=== PATIENT | male | born 1985 | race Caucasian/White ===

== ENCOUNTER 2021-09-19 07:14 | Emergency (ER) | payer BC, SELFPAY ==
--- NOTE | 2021-09-19 07:15 | PC.NURSE ---
JENNIFER Pérez at BS
[2021-09-19 07:22] VITALS: BP 136/98; PULSE 80; RESP 17; TEMP 36.6; O2SAT 100; BMI 25.0
[2021-09-19 07:49] LABS: Basophils # 0.1 K/mm3 (0-0.2); Basophils % 0.6 % (0.1-2.0); Eosinophils # 0.1 K/mm3 (0.0-0.4); Eosinophils % 0.8 % (0.1-12.0); Hematocrit 48.7 % (42.0-52.0); Lymphocytes # 1.3 K/mm3 (0.7-4.5); Lymphocytes % 13.7 % (10-50); Mean Corpuscular HGB Conc 34.8 g/dL (31.8-35.4); Mean Corpuscular Hemoglobin 31.7 pg (27.0-31.2); Mean Platelet Volume 8.2 fl (7.4-10.4); Monocytes # 0.6 K/mm3 (0.1-1.0); Monocytes % 6.1 % (1.7-9.3); Neutrophils # 7.4 K/mm3 (1.8-7.8); Neutrophils % 78.9 % (37.0-80.0); Platelet Count 227 K/mm3 (142-424); Red Blood Count 5.35 M/mm3 (4.60-6.20); Red Cell Distribution Width 13.5 % (11.5-17.5); White Blood Count 9.4 K/mm3 (4.8-10.8)
[2021-09-19 08:01] LABS: Adenovirus F 40/41, stool Not Detected (NotDetected); Astrovirus Not Detected (NotDetected); Campylobacter Not Detected (NotDetected); Clostridium Difficile A/B, PCR Not Detected (NotDetected); Cryptosporidium Not Detected (NotDetected); Cyclospora Cayetanesis Not Detected (NotDetected); Entamoeba histolytica Not Detected (NotDetected); Enteroaggregative E coli Not Detected (NotDetected); Enteropathogenic E coli Not Detected (NotDetected); Enterotoxigenic E coli Not Detected (NotDetected); Giardia lamblia Not Detected (NotDetected); Microscopic, Urine URINE MICROSCOPIC (MICROSCOPIC); Norovirus Not Detected (NotDetected); Plesimonas Shigalloides, PCR Not Detected (NotDetected); Rotavirus A Not Detected (NotDetected); Salmonella, PCR Not Detected (NotDetected); Shiga-like toxin E coli Not Detected (NotDetected); Shigella Enterovasive E coli Not Detected (NotDetected); Vibrio Cholerae Not Detected (NotDetected); Vibrio, PCR Not Detected (NotDetected); Yersinia Entercolitica, PCR Not Detected (NotDetected)
[2021-09-19 08:02] LABS: Appearance,Urine CLEAR (Clear); Bilirubin,Urine Negative (Negative); Blood, Urine Negative (Negative); Color,Urine YELLOW (Yellow); Glucose,Urine (UA) Negative (Negative); Ketones,Urine TRACE (Negative); Leukocyte Esterase,Urine Negative (Negative); Nitrate,Urine Negative (Negative); PH,Urine 6.5 (5.0-8.5); Protein,Urine Negative (Negative); Specific Gravity, Urine 1.015 (1.005-1.030); Urobilinogen,Urine 0.2 EU/dl (0.2)
[2021-09-19 08:19] LABS: Bacteria,Urine 3+ /lpf; Mucus,Urine 3+ /lpf; Squamous Epithelial Cell,Urine Occasional #/hpf (0-5); WBC,Urine Occasional #/hpf (0-3)
[2021-09-19 08:23] LABS: Alanine Aminotransferase 48 U/L (12-78); Albumin Level 4.9 g/dl (3.5-5.0); Albumin/Globulin Ratio 1.5 (1.1-1.8); Alkaline Phosphatase 125 U/L (38-126); Anion Gap 15.6 mEq/L (5-15); Aspartate Amino Transferase 42 U/L (17-59); Bilirubin,Total 0.6 mg/dl (0.2-1.3); Blood Urea Nitrogen 9 mg/dl (9-20); Calcium 9.8 mg/dl (8.4-10.2); Carbon Dioxide 25 mmol/L (22.0-30.0); Chloride 102 mmol/L (98-107); Creatinine Clearance Estimated 135 mL/min (50-200); Estimated Glomerular Filt Rate 95 ml/min (>60); GFR (African American) 116 ML/MIN (>60); Globulin 3.3 g/dL (1.3-3.2); Glucose 126 mg/dl (74-100); Lipase 54 U/L (23-300); Potassium 3.6 mmoL/L (3.5-5.1); Sodium 139 mmol/L (136-145); Total Protein,Serum 8.2 g/dl (6.3-8.2)
--- NOTE | 2021-09-19 08:58 | HMH.EDNVD ---
ED Disposition Clinical Impression: Gastroenteritis Disposition: Home, Self-Care Condition on Discharge: Good Instructions: Viral Gastroenteritis Additional Instructions: These follow-up with your primary care physician in 2 to 3 days for further management. Please take Zofran as prescribed for nausea and vomiting. Please also utilize Tylenol and ibuprofen as needed. Please return for any concerning symptoms such as inability to eat and drink, symptoms that do not improve, bloody stools, worsening abdominal pain or any other concerns. Make sure you are staying hydrated and drink plenty of water. Prescriptions: Ondansetron [Zofran 4mg ODT] 4 mg PO TIDP PRN #30 tab PRN Reason: Nausea Transmission Status: Received by [id number] Referrals: Lily Arias APRN [Primary Care Provider] - - Critical Care Critical Care Time: No Attestation: On 09/19/21, the high probability of a clinically significant, sudden or life threatening deterioration of the following system(s) required my full and direct attention, intervention and personal management. The time I documented below is in addition to time spent performing reported procedures but includes the following listed in this critical care notation. Medical Decision Making - Medical Records Medical records reviewed: Yes: I reviewed the patient's medical records. - Richard Inquiry Pt receiving controlled substance: No Vital Signs: 09/19/21 07:22 09/19/21 09:12 Temperature 97.9 F 97.9 F Temperature Source Oral Pulse Rate 73 Pulse Rate [Left Radial] 80 Respiratory Rate 17 16 Blood Pressure 125/79 Blood Pressure [Right Arm] 136/98 H Blood Pressure Mean [Right Arm] 110 02 Sat by Pulse Oximetry 100 Oxygen Delivery Method Room Air - Lab Data Lab results reviewed: Yes: I reviewed the patient's lab results. Lab Results 09/19/21 07:37: WBC 9.4, RBC 5.35, Hgb 17.0, Hct 48.7, MCV 91.0, MCH 31.7 H, MCHC 34.8, RDW 13.5, Plt Count 227, MPV 8.2, Neut % (Auto) 78.9, Lymph % (Auto) 13.7, [place] % (Auto) 6.1, Eos % (Auto) 0.8, Baso % (Auto) 0.6, Neut # (Auto) 7.4, Lymph # (Auto) 1.3, [place] # (Auto) 0.6, Eos # (Auto) 0.1, Baso # (Auto) 0.1 09/19/21 07:37: Sodium 139, Potassium 3.6, Chloride 102, Carbon Dioxide 25, Anion Gap 15.6 H, BUN 9, Creatinine 0.90, Estimated Creat Clear 135, Estimated GFR 95, Est GFR ( Amer) 116, Glucose 126 H, Calcium 9.8, Total Bilirubin 0.6, AST 42, ALT 48, Alkaline Phosphatase 125, Total Protein 8.2, Albumin 4.9, Globulin 3.3 H, Albumin/Globulin Ratio 1.5 09/19/21 07:37: Lipase 54 09/19/21 07:58: Urine Color Yellow, Urine Appearance Clear, Urine pH 6.5, Ur Specific [place] 1.015, Urine Protein Negative, Urine Glucose (UA) Negative, Urine Ketones Trace, Urine Blood Negative, Urine Nitrate Negative, Urine Bilirubin Negative, Urine Urobilinogen 0.2, Ur Leukocyte Esterase Negative, Urine RBC None, Urine WBC Occasional, Ur Squamous Epith Cells Occasional, Urine Bacteria 3+, Urine Mucus 3+ Result diagrams: 09/19/21 07:37 09/19/21 07:37 Orders (Tests/Meds): ED MEDICATIONS Discontinued Medications Generic Name Dose Route Start Last Admin Trade Name Yohannes PRN Reason Stop Dose Admin Acetaminophen 1,000 mg 09/19/21 08:13 09/19/21 08:24 Acetaminophen 500mg Tab PO 09/19/21 08:14 1,000 mg ONCE ONE Administration Sodium Chloride 1,000 mls @ 999 mls/hr 09/19/21 07:30 09/19/21 07:37 Sod Chlor 0.9% 1000ml Bag IV 09/19/21 08:30 999 mls/hr .Q1H1M PRITI Administration Ibuprofen 600 mg 09/19/21 08:13 09/19/21 08:24 Ibuprofen 600 Mg Tablet PO 09/19/21 08:14 600 mg ONCE ONE Administration Ondansetron HCl 4 mg 09/19/21 07:26 09/19/21 07:36 Ondansetron 4mg/2ml Vial IV 09/19/21 07:27 4 mg ONCE ONE Administration Sodium Chloride 10 ml 09/19/21 07:26 Sodium Chloride 0.9% 10ml Flush Syringe IV 10/19/21 07:25 NEEDED PRN Maintain IV Site ORDERS Category Date Time Status Suyapa
[2021-09-19 09:12] VITALS: BP 125/79; PULSE 73; RESP 16; TEMP 36.6; O2SAT 100
[2021-09-19 15:10] LABS: Sapovirus Detected (NotDetected)
== END 2021-09-19 09:12 | disposition home or self-care (01) ==
PROVIDERS: Emergency Medicine; Emergency Provider Student in an Organized Health Care Education/Training Program; PCP Nurse Practitioner Family
DX: K52.9 Noninfective gastroenteritis and colitis, unspecified (principal)
CPT/HCPCS: 80053; 81001; 83690; 85025; 87086; 87506; 96360; 96375; 99284; J2405

== ENCOUNTER → 2022-04-04 12:47 | Outpatient (CLI) | payer BC, SELFPAY ==
[2022-04-04 13:42] LABS: Basophils % 0.6 % (0.1-2.0); Eosinophils # 0.1 K/mm3 (0.0-0.4); Eosinophils % 0.8 % (0.1-12.0); Hematocrit 45.9 % (42.0-52.0); Hemoglobin 15.3 g/dL (14.1-18.0); Lymphocytes # 1.5 K/mm3 (0.7-4.5); Lymphocytes % 20.6 % (10-50); Mean Corpuscular HGB Conc 33.3 g/dL (31.8-35.4); Mean Corpuscular Hemoglobin 30.7 pg (27.0-31.2); Mean Platelet Volume 7.9 fl (7.4-10.4); Monocytes # 0.4 K/mm3 (0.1-1.0); Neutrophils # 5.4 K/mm3 (1.8-7.8); Neutrophils % 72.9 % (37.0-80.0); Platelet Count 260 K/mm3 (142-424); Red Blood Count 4.99 M/mm3 (4.60-6.20); Red Cell Distribution Width 13.1 % (11.5-17.5); White Blood Count 7.4 K/mm3 (4.8-10.8)
[2022-04-04 14:15] LABS: Alanine Aminotransferase 29 U/L (12-78); Albumin Level 5.1 g/dl (3.5-5.0); Albumin/Globulin Ratio 1.6 (1.1-1.8); Alkaline Phosphatase 137 U/L (38-126); Amylase 70 U/L (30-110); Anion Gap 16.5 mEq/L (5-15); Aspartate Amino Transferase 29 U/L (17-59); Bilirubin,Total 0.5 mg/dl (0.2-1.3); Blood Urea Nitrogen 9 mg/dl (9-20); Calcium 10.5 mg/dl (8.4-10.2); Carbon Dioxide 24 mmol/L (22.0-30.0); Chloride 104 mmol/L (98-107); Estimated Glomerular Filt Rate 85 ml/min (>60); GFR (African American) 102 ML/MIN (>60); Globulin 3.1 g/dL (1.3-3.2); Glucose 99 mg/dl (74-100); Lipase 69 U/L (23-300); Potassium 4.5 mmoL/L (3.5-5.1); Sodium 140 mmol/L (136-145); Total Protein,Serum 8.2 g/dl (6.3-8.2)
[2022-04-05 18:04] LABS: H. pylori Breath Test Negative (Negative)
== END ==
PROVIDERS: PCP Nurse Practitioner Family; Visit Provider Nurse Practitioner Family
DX: R10.9 Unspecified abdominal pain (principal); R10.13 Epigastric pain
CPT/HCPCS: 36415; 80053; 82150; 83013; 83690; 85025

== ENCOUNTER 2023-07-28 17:29 | Outpatient (CLI) | payer BC, SELFPAY ==
[2023-07-28 16:46] LABS: Basophils % 0.5 % (0.1-2.0); Eosinophils # 0.1 K/mm3 (0.0-0.4); Eosinophils % 1.1 % (0.1-12.0); Hematocrit 46.8 % (42.0-52.0); Hemoglobin 15.6 g/dL (14.1-18.0); Mean Corpuscular HGB Conc 33.4 g/dL (31.8-35.4); Mean Corpuscular Hemoglobin 31.1 pg (27.0-31.2); Mean Corpuscular Volume 93.4 fl (80-94); Mean Platelet Volume 8.2 fl (7.4-10.4); Monocytes # 0.5 K/mm3 (0.1-1.0); Monocytes % 5.6 % (1.7-9.3); Neutrophils # 5.5 K/mm3 (1.8-7.8); Neutrophils % 67.8 % (37.0-80.0); Platelet Count 222 K/mm3 (142-424); Red Blood Count 5.01 M/mm3 (4.60-6.20); Red Cell Distribution Width 13.4 % (11.5-17.5); White Blood Count 8.1 K/mm3 (4.8-10.8)
[2023-07-28 17:08] LABS: Alanine Aminotransferase 45 U/L (12-78); Albumin/Globulin Ratio 1.8 (1.1-1.8); Alkaline Phosphatase 80 U/L (38-126); Anion Gap 12.3 mEq/L (5-15); Aspartate Amino Transferase 35 U/L (17-59); Bilirubin,Total 0.5 mg/dl (0.2-1.3); Blood Urea Nitrogen 11 mg/dl (9-20); Calcium 10.1 mg/dl (8.4-10.2); Carbon Dioxide 29 mmol/L (22.0-30.0); Chloride 105 mmol/L (98-107); Chol/HDL Ratio 4.9 (1-3.5); Cholesterol 248 mg/dl (140-200); Estimated Glomerular Filt Rate 95 ml/min (>60); GFR (African American) 115 ML/MIN (>60); Globulin 2.8 g/dL (1.3-3.2); Glucose 97 mg/dl (74-100); HDL Cholesterol 51 mg/dl (40-60); Potassium 4.3 mmoL/L (3.5-5.1); Sodium 142 mmol/L (136-145); Total Protein,Serum 7.8 g/dl (6.3-8.2); Triglycerides 295 mg/dl (30-150); VLDL Cholesterol 59 mg/dL (0-40)
[2023-07-28 17:19] LABS: Direct LDL Cholesterol 138.57 mg/dL (100-129)
[2023-07-28 17:23] LABS: T4 (Thyroxine) 7.3 ug/dl (5.53-11.0)
[2023-07-28 17:24] LABS: 25-OH Vitamin D, Total 33.3 ng/mL (30-100)
[2023-07-28 17:37] LABS: Thyroid Stimulating Hormone 1.05 uIU/mL (0.465-4.68)
[2023-07-28 17:56] LABS: Vitamin B12 632 pg/mL (239-931)
[2023-07-29 08:58] LABS: Triiodothyronine (T3) Free 2.7 pg/mL (2.0-4.4)
[2023-08-03 12:56] LABS: Magnesium,RBC 5.1 mg/dL (3.7-7.0)
[2023-08-05 08:26] LABS: Antinuclear Antibodies (ANA) Negative
== END 2023-07-28 23:59 ==
LOC: LAB.DROPOF 17:29
PROVIDERS: PCP Nurse Practitioner Family; Visit Provider Nurse Practitioner Family
DX: R42 Dizziness and giddiness (principal); E01.0 Iodine-deficiency related diffuse (endemic) goiter; Z13.220 Encounter for screening for lipoid disorders; E78.1 Pure hyperglyceridemia
CPT/HCPCS: 80053; 80061; 82306; 82607; 82728; 83735; 84436; 84443; 84481; 85025; 86038; 86225; 86235

== ENCOUNTER 2023-07-31 13:46 | Outpatient (CLI) | payer BC, SELFPAY ==
--- NOTE | 2023-07-31 13:46 | US_ITS ---
FINAL REPORT TECHNIQUE: Real-time grayscale and color ultrasound of the thyroid was performed. CLINICAL HISTORY: thyromegaly COMPARISON: None FINDINGS: The thyroid gland measures 3.5 x 1.5 x 1.5 cm on the right and 4.0 x 1.6 x 1.2 cm on the left. The isthmus measures 0.2 cm. The parenchyma is unremarkable . Nodules: There are no suspicious nodules or masses. IMPRESSION: Unremarkable thyroid ultrasound. Reviewed, Interpreted and Dictated by William Cope III, MD Transcribed by Jennifer Ramos Authenticated and [facility]
== END 2023-07-31 23:59 ==
LOC: RAD 13:46
PROVIDERS: PCP Nurse Practitioner Family; Visit Provider Nurse Practitioner Family
DX: E01.0 Iodine-deficiency related diffuse (endemic) goiter (principal)
CPT/HCPCS: 76536

== ENCOUNTER 2023-08-14 13:29 | Outpatient (CLI) | payer BC, SELFPAY ==
--- NOTE | 2023-08-14 13:29 | MR_ITS ---
FINAL REPORT CLINICAL HISTORY: dizziness. lightheadedness COMPARISON: None FINDINGS: Multi planar MR imaging was obtained through the brain without contrast. The midline structures appear intact. There is no evidence of Chiari malformation. On T2 and flair axial images the brain parenchyma is homogeneous. On diffusion-weighted images there is no evidence of restricted diffusion. The visualized paranasal sinuses demonstrate normal signal voids. The seventh and eighth nerve root complexes are intact. IMPRESSION: Essentially unremarkable nonenhanced brain MRI. Reviewed, Interpreted and Dictated by Jeramie Corrales MD Transcribed by Trish Velázquez Authenticated and [facility]
== END 2023-08-14 23:59 | disposition home or self-care (01) ==
LOC: RAD 13:29
PROVIDERS: PCP Nurse Practitioner Family; Visit Provider Nurse Practitioner Family
DX: R42 Dizziness and giddiness (principal)
CPT/HCPCS: 70551

== ENCOUNTER 2023-11-04 12:12 | Outpatient (CLI) | payer BC, SELFPAY ==
[2023-11-04 12:49] LABS: Alanine Aminotransferase 44 U/L (12-78); Albumin Level 4.9 g/dl (3.5-5.0); Albumin/Globulin Ratio 1.6 (1.1-1.8); Alkaline Phosphatase 87 U/L (38-126); Anion Gap 11.3 mEq/L (5-15); Aspartate Amino Transferase 34 U/L (17-59); Bilirubin,Total 0.5 mg/dl (0.2-1.3); Blood Urea Nitrogen 13 mg/dl (9-20); Calcium 10.1 mg/dl (8.4-10.2); Carbon Dioxide 28 mmol/L (22.0-30.0); Chloride 105 mmol/L (98-107); Chol/HDL Ratio 5.6 (1-3.5); Cholesterol 241 mg/dl (140-200); Estimated Glomerular Filt Rate 94 ml/min (>60); GFR (African American) 114 ML/MIN (>60); Glucose 83 mg/dl (74-100); HDL Cholesterol 43 mg/dl (40-60); Magnesium 2.1 mg/dl (1.6-2.3); Potassium 4.3 mmoL/L (3.5-5.1); Sodium 140 mmol/L (136-145); Total Protein,Serum 7.9 g/dl (6.3-8.2); Triglycerides 213 mg/dl (30-150); VLDL Cholesterol 43 mg/dL (0-40)
[2023-11-04 13:00] LABS: Direct LDL Cholesterol 146.97 mg/dL (100-129)
== END 2023-11-04 23:59 | disposition home or self-care (01) ==
LOC: LAB.DROPOF 12:12
PROVIDERS: PCP Nurse Practitioner Family; Visit Provider Nurse Practitioner Family
DX: R42 Dizziness and giddiness (principal); E78.5 Hyperlipidemia, unspecified
CPT/HCPCS: 36415; 80053; 80061; 83735

== ENCOUNTER 2025-04-20 04:44 | Emergency (ER) | payer BC, SELFPAY ==
[2025-04-20 04:54] VITALS: BP 140/103; PULSE 96; RESP 16; TEMP 36.7; O2SAT 98; BMI 26.4
--- OUTSIDE RECORDS SUMMARY | 2025-04-20 04:58 | XMS_ITS | Encounter Summary ---
Author Organization [facility] Address [address] [id number] Care Team Providers Care Vice President Digital Strategist Name Role Phone Leesa Ariaskristine Rojas APRN Primary Care Provider +1- [phone] Encounter Details Date Type Department Care Team (Late st Contact Info) Description 10/21/2022 Lab Requisition [facility] [address] [place] [address] Sindy Jiménez MD [address] [place] [address] Change in bowel habit; Abdominal distension (gaseous); Heartburn; Nausea Social History Tobacco Use Types Packs/Day Years Used Date Smoking Tobacco: Never Smokeless Tobacco: Never Alcohol Use Standard Drinks/Week Comments Not Currently 0 (1 standard drink = 0.6 oz pur e alcohol) PHQ-2 Answer Date Recorded Patient Health Questionnaire-2 Score 0 08/27/2022 PHQ-2A Answer Date Recorded Patient Health Questionnaire-2 Score 0 08/27/2022 Sex and Gender Information Value Date Recorded Sex Assigned at Not on file Legal Sex Male 6:24 PM EDT Gender Identity Not on file Sexual Orientation Not on file documented as of this encounter Plan of Treatment Not on file documented as of this encounter Procedures Procedure Name Priority Date/Time Associated Diagnosis Comments SURGICAL PATHOLOGY EXAM Routine 10/21/2022 Change in bowel habit Abdominal distension (gaseous) Heartburn Nausea documented in this encounter Results * Surgical Pathology Exam (10/21/2022) Case Report Surgical Pathology Case: [id number] Authorizing Provider: Collected: 10/21/2022 Ordering Location: [facility] Lab Received: 10/21/2022 5779 Pathologist: Sneha Castillo MD Specimens: A) - Cecum, Cecal biopsy B) - Colon, random colon biopsy C) - Sigmoid Colon, Sigmoid Colon polyp 10/22/2022 1:05 PM EDT [facility] Final Diagnosis A. LARGE INTESTINE, CECUM, BIOPSY: - MELANOSIS COLI. B. LARGE INTESTINE, RANDOM COLON, BIOPSY: - MELANOSIS COLI. C. LARGE INTESTINE, SIGMOID COLON, BIOPSY: - TUBULAR ADENOMA. 10/22/2022 1:05 PM EDT [facility] at 1305 EDT Clinical Information Change in bowel habit, abdominal distension (gaseous), heartburn, nausea, dyspepsia A 6 mm polyp was found in the sigmoid colon. The polyp was sessile. A diffuse area of mildly nodular mucosa was found in the cecum consistent with lymphoid tissue. Normal mucosa was found in the remainder of the colon. 10/22/2022 1:05 PM EDT [facility] Gross Description A. CECAL BIOPSY The specimen is received in formalin labeled cecal BX , and consists of four red-bellamy soft tissue fragment ranging from 0.2-0.4 cm in greatest dimension. Entirely submitted in cassette A1. Shannon L Ziggy B. RANDOM COLON BIOPSY The specimen is received in formalin labeled random colon BX , and consists of three red-bellamy soft tissue fragments ranging from 0.3-0.5 cm in greatest dimension. Entirely submitted in cassette B 1. Shannon L Ziggy C. SIGMOID COLON POLYP The specimen is received in formalin labeled sigmoid polyp , and consists of a red-bellamy polypoid structure measuring 1.0 cm in greatest dimension. Entirely submitted in cassette C1. Shannon L Ziggy 10/22/2022 1:05 PM EDT [facility] Note: A resident was involved in the service. I attest I examined the relevant preparations for the specimens and confirmed the diagnosis or interpretation. 10/22/2022 1:05 PM EDT [facility] Tissue Sigmoid colon structure / Unknown 10/21/2022 10/21/2022 1:57 PM EDT Tissue specimen (specimen) Colon structure / Unknown 10/21/2022 10/21/2022 1:57 PM EDT Tissue specimen (specimen) Sigmoid colon structure / Unknown 10/21/2022 10/21/2022 1:57 PM EDT us Sindy Jiménez MD LAB PATHOLOGY ORDERABLES Final Result Performing Organization Address City/State/[facility] Phone Number [facility] [address] [place] [address] documented in this encounter Visit Diagnoses Diagnosis Change in bowel habit Abdominal distension (gaseous) Heartburn Nausea Nausea alone documented in this encounter Additional Health Concerns Assessment Noted Time A fall risk assessment has been complete d for the patient 08/27/2022 9:38 AM EDT A Body Mass Index follow-up plan has been documented for the patient 08/27/2022 2:20 PM EDT documented as of this encounter Care Teams Vice President Digital Strategist Relationship Specialty Start Date End Date Lily Arias APRN [address] [place] [address] PCP - General 11/01/22 documented as of this encounter
--- OUTSIDE RECORDS SUMMARY | 2025-04-20 04:58 | XMS_ITS | Encounter Summary ---
Author Organization [facility] Address [address] [place] [address] Care Team Providers Care Unloader Operator Name Role Phone Lily Arias Crystal MENDEZ Primary Care Provider [phone]- [phone] Reason for Visit * Reason Comments Med Refill Encounter Details Date Type Department Care Team (Late st Contact Info) Description 01/28/2025 Refill [facility] [address] [place] [address] Swathi Gresham, MAGDALENE [address] [place] [address] Irritable bowel syndrome with constipation Social History Tobacco Use Types Packs/Day Years Used Date Smoking Tobacco: Never Passive Smoke Exposure: Never Smokeless Tobacco: Never Alcohol Use Standard Drinks/Week Comments Not Currently 0 (1 standard drink = 0.6 oz pur e alcohol) PHQ-2 Answer Date Recorded Patient Health Questionnaire-2 Score 0 11/24/2023 PHQ-2A Answer Date Recorded Patient Health Questionnaire-2 Score 0 08/27/2022 Sex and Gender Information Value Date Recorded Sex Assigned at Not on file Legal Sex Male 6:24 PM EDT Gender Identity Not on file Sexual Orientation Not on file documented as of this encounter Miscellaneous Notes * Telephone Encounter - Vinh Haddad, PharmD - 01/31/2025 9:16 AM EDT Refill request does not meet protocol. Sending to clinic for review. Additional info: Appointment compliance - Patient has not followed up in clinic as requested. Please review for scheduling and if refills are appropriate. documented in this encounter Plan of Treatment Not on file documented as of this encounter Visit Diagnoses Diagnosis Irritable bowel syndrome with constipation Irritable bowel syndrome documented in this encounter Additional Health Concerns Assessment Noted Time A fall risk assessment has been complete d for the patient 11/24/2023 1:23 PM EDT A Body Mass Index follow-up plan has been documented for the patient 11/27/2023 11:30 AM EDT documented as of this encounter Care Teams Unloader Operator Relationship Specialty Start Date End Date Lily Arias APRN [address] [place] [address] PCP - General 11/01/22 documented as of this encounter
--- OUTSIDE RECORDS SUMMARY | 2025-04-20 04:58 | XMS_ITS | Encounter Summary ---
Author Organization [facility] Address [address] [place] [address] Care Team Providers Care Labeling Specialist Name Role Phone Lily Arias VANESSA Primary Care Provider +1- [phone] Encounter Details Date Type Department Care Team (Late st Contact Info) Description 10/21/2022 Outside Procedure [facility] [place] [address] [place] [id number] Provider, External Social History Tobacco Use Types Packs/Day Years [...] Procedure Name Priority Date/Time Associated Diagnosis Comments EGD 10/21/2022 11:34 AM EDT documented in this encounter Results * EGD (10/21/2022 11:34 AM EDT) Anatomical Region Laterality Modality Endoscopy 10/21/2022 10:5 5 AM EDT Impressions 10/21/2022 11:34 AM EDT Please see media tab for the result. Information added by interface. Narrative Procedure Note Sindy Jiménez MD - 10/21/2022 IMPRESSION: Please see media tab for the result. Information added by interface. us External Provider GI PROCEDURE ORDERABLES Final Result documented in this encounter Visit Diagnoses Not on filedocumented in this encounter Additional Health Concerns Assessment Noted Time A fall risk assessment has been complete d for the patient 08/27/2022 9:38 AM EDT A Body Mass Index follow-up plan has been documented for the patient 08/27/2022 2:20 PM EDT documented as of this encounter Care Teams Labeling Specialist Relationship Specialty Start Date End Date Lily Arias APRN [address] [place] [address] PCP - General 11/01/22 documented as of this encounter
--- OUTSIDE RECORDS SUMMARY | 2025-04-20 04:58 | XMS_ITS | Encounter Summary ---
Author Organization [facility] Address [address] [place] [address] Care Team Providers Care Debrander Name Role Phone Leesa Ariase Crystal VANESSA Primary Care Provider +1- [phone] Encounter Details Date Type Department Care Team (Late st Contact Info) Description 10/21/2022 Outside Procedure [facility] [place] [address] [place] [address] Provider, External Social History Tobacco Use [...] Procedure Name Priority Date/Time Associated Diagnosis Comments COLONOSCOPY 10/21/2022 11:30 AM EDT documented in this encounter Results * Colonoscopy (10/21/2022 11:30 AM EDT) Anatomical Region Laterality Modality Endoscopy 10/21/2022 11:0 5 AM EDT Impressions 10/21/2022 11:30 AM EDT Please see media tab for [...] documented as of this encounter Care Teams Debrander Relationship Specialty Start Date End Date Lily Arias APRN [address] [place] [address] PCP - General 11/01/22 documented as of this encounter
--- OUTSIDE RECORDS SUMMARY | 2025-04-20 04:58 | XMS_ITS | Clinical Summary ---
Author Organization [facility] Address [address] [place] [address] Care Team Providers Care Process Control Programmer Name Role Phone Lily Arias VANESSA Primary Care Provider +1- [phone] Allergies No known active allergies Medications sertraline (Zoloft) 50 MG tablet TAKE 1 TABLET BY MOUTH ONCE DAILY FOR 30 DAYS 3 Active ondansetron ODT (Zofran-ODT) 4 MG disintegrating tablet prn 3 Active cyanocobalamin (Vitamin B-12) 1000 MCG/ML injection INJECT 1ML ONCE EVERY MONTH DIRECTED 3 Active Probiotic Product (PROBIOTIC BLEND PO) Take by mouth. Active magnesium hydroxide (Milk of Magnesia) 400 MG/5ML suspension Take 15 mL by mouth 1 (one) time each day if needed for constipation . Active dicyclomine (Bentyl) 10 MG capsuleIndications: Irritable bowel syndrome with constipation Take 1 capsule (10 mg) by mouth every 8 (eight) hours if needed (abd cramping or diarrhea). 60 capsule 3 4 Active Active Problems No known active problems Encounters Date Type Department Care Team Description 01/28/2025 Refill [facility] [address] [place] [id number] Swathi Gresham, MAGDALENE Irritable bowel syndrome with constipation from Last 3 Months Family History Medical History Relation Name Comments Anxiety disorder Mother Relation Name Status Comments Father Mother Alive Social History Tobacco Use Types Packs/Day Years [...] on file Sexual Orientation Not on file Last Filed Vital Signs Vital Sign Reading Time Taken Comments Blood Pressure 134/88 11/24/2023 1:12 PM EDT Pulse 63 11/24/2023 1:12 PM EDT Temperature 36.5 C (97.7 F) 11/24/2023 1:12 PM EDT Respiratory Rate - - Oxygen Saturation 99% 11/24/2023 1:12 PM EDT Inhaled Oxygen Concentration - - Weight 93 kg (205 lb 0.4 oz) 11/24/2023 1:12 PM EDT Height 182.9 cm (6') 11/24/2023 1:12 PM EDT Body Mass Index 27.81 11/24/2023 1:12 PM EDT Plan of Treatment Health Maintenance Due Date Last Done Comments [facility]-HIV Screening 1985 [facility]-Hepatitis C Screening 1985 [facility]-Infant/Child/Adol SDOH Screenings 1985 [id number] Vaccine (#1) 01/29/1986 [facility]-DTaP,Tdap,and Td Vaccine s (2 - Tdap) 1996 07/29/1996 [facility]-Varicella Vaccines (1 of 2 - 13+ 2-dose series) 1998 [facility]- SDOH Screenings 07/31/2003 [facility]-Adult SDOH Screenings 07/31/2003 [facility]-Hepatitis B Vaccines (1 of 3 - 19+ 3-dose series) 2004 [facility]-Depression Screening 11/23/2024 11/24/2023 [facility]-Influenza Vaccine (#1) 2024 [facility]-Zoster Vaccines (1 of 2) 07/31/2035 [facility]-Obesity Intervention Completed 024, 08/27/2022 HPV Vaccines (No Doses Required) Completed [facility]-HIB Vaccines Aged Out No longer e ligible based on patient's age to complete this topic [facility]-Hepatitis A Vaccines Aged Out No longer eligible based on patient's age to complete this topic [facility]-IPV Vaccines Aged Out No longer e ligible based on patient's age to complete this topic [facility]-Pneumococcal Vaccine: Pediatrics (0 to 5 Years) and At-Risk Patients (6 to 49 Years) Aged Out No longer eligible b ased on patient's age to complete this topic [facility]-Rotavirus Vaccines Aged Out No lo nger eligible based on patient's age to complete this topic Insurance NAUN Care Teams Process Control Programmer Relationship Specialty Start Date End Date Lily Arias APRN [address] [place] [address] PCP - General 11/01/22
--- NOTE | 2025-04-20 05:27 | CT_ITS ---
PROCEDURE INFORMATION: Exam: CT Abdomen And Pelvis With Contrast Exam date and time: 04/20/2025 6:05 AM Age: 39 years old Clinical indication: Nausea and other: Cramping, diarrhea; Additional info: Diarrhea, severe cramping TECHNIQUE: Imaging protocol: Computed tomography of the abdomen and pelvis with contrast. Radiation optimization: All CT scans at this facility use at least one of these dose optimization techniques: automated exposure control; mA and/or kV adjustment per patient size (includes targeted exams where dose is matched to clinical indication); or iterative reconstruction. Contrast material: ISOVUE; Contrast volume: 75 ml; Contrast route: IV; COMPARISON: No relevant prior studies available. FINDINGS: Lungs: Subpleural nodule measuring 3.5 mm is seen in the right lung base. Liver: Normal. No mass. Gallbladder and biliary ducts: Cholecystectomy clips are seen. Pancreas: Normal. No ductal dilation. Spleen: Normal. No splenomegaly. Adrenal glands: Normal. No mass. Kidneys and ureters: Hypodensity in less than 1 cm in the right kidney is too small to accurately characterize. Stomach and bowel: Unremarkable. No obstruction. No mucosal thickening. Appendix: No evidence of appendicitis. Intraperitoneal space: No evidence of free air in the abdomen. Vasculature: Unremarkable. No abdominal aortic aneurysm. Lymph nodes: Unremarkable. No enlarged lymph nodes. Urinary bladder: Unremarkable as visualized. Reproductive: Unremarkable as visualized. Bones/joints: Unremarkable. No acute fracture. Soft tissues: Unremarkable. IMPRESSION: 1. No acute findings. 2. Subpleural nodule measuring 3.5 mm is seen in the right lung base. For patients at low risk (minimal or absent history of smoking and of other known risk factors), no routine follow-up is indicated. For patients at high risk (history of smoking or of other known risk factors), consider optional CT Chest at 12 months. (Reference: Kristine) COMMENTS: Consistent with the [employer]'s Incidental Findings Committee white paper (J Am Eric Radiol 2018): Any incidental renal lesion less than 1 cm or classified as too small to characterize, or any incidental cystic renal lesion characterized as simple-appearing, is likely benign. No follow-up imaging is recommended for these lesions per consensus recommendations based on imaging criteria. REFERENCES: Kristine Perales et al. Guidelines for Management of Incidental Pulmonary Nodules Detected on CT Images: From the Fleischner Society 2017. Radiology. 2017;284(1):228-243.
[2025-04-20 05:35] LABS: Hematocrit 50.9 % (42.0-52.0); Hemoglobin 17.9 g/dL (14.1-18.0); Immature Granulocytes % 0.4 %; Mean Corpuscular HGB Conc 35.2 g/dL (31.8-35.4); Mean Corpuscular Hemoglobin 30.5 pg (27.0-31.2); Mean Corpuscular Volume 86.7 fl (80-94); Nucleated Red Blood Cells % 0 %; Platelet Count 301 K/mm3 (142-424); Red Blood Count 5.87 M/mm3 (4.60-6.20); Red Cell Distribution Width-SD 38.9 fL; White Blood Count 7.6 K/mm3 (4.8-10.8)
[2025-04-20 05:37] LABS: Albumin Level 5.8 g/dl (3.5-5.0); Chloride 103 mmol/L (98-107); Potassium 3.7 mmoL/L (3.5-5.1); Sodium 142 mmol/L (136-145)
[2025-04-20 05:40] LABS: Alanine Aminotransferase 50 U/L (12-78); Albumin/Globulin Ratio 1.5 (1.1-1.8); Alkaline Phosphatase 98 U/L (38-126); Anion Gap 17.7 mEq/L (5-15); Aspartate Amino Transferase 39 U/L (17-59); Bilirubin,Total 0.8 mg/dl (0.2-1.3); Blood Urea Nitrogen 15 mg/dl (9-20); Calcium 10.1 mg/dl (8.4-10.2); Carbon Dioxide 25 mmol/L (22.0-30.0); Creatinine Clearance Estimated 103 mL/min (50-200); Creatinine,Serum 1.20 mg/dl (0.66-1.25); Estimated Glomerular Filt Rate 67 ml/min (>60); GFR (African American) 82 ML/MIN (>60); Globulin 3.9 g/dL (1.3-3.2); Glucose 112 mg/dl (74-100); Lipase 132 U/L (23-300); Total Protein,Serum 9.7 g/dl (6.3-8.2)
[2025-04-20 05:42] LABS: INR 0.98 (0.9-1.1); Prothrombin Time 10.9 seconds (10.1-12.5)
--- NOTE | 2025-04-20 05:45 | HMH.EDGENADL ---
Discharge Plan Disposition Chief Complaint: Abdominal Pain Prescriptions Prescriptions: New ondansetron 4 mg tablet,disintegrating 4 mg PO Q6H PRN (Reason: nausea and vomiting) Qty: 10 0RF sucralfate 1 gram tablet 1 g PO TID Qty: 30 0RF No Action multivitamin Tablet 1 tab PO DAILY ondansetron 4 mg tablet,disintegrating 4 mg PO Q8H PRN (Reason: Nausea) Qty: 30 3RF Digest Adv Probio Plus Gas 2 billion cell capsule 1 cap PO DAILY magnesium gluconate [Mag-G] 27 mg magnesium (500 mg) tablet 27 mg PO BID dicyclomine 10 mg capsule 10 mg PO Q8HP PRN Patient Comments: TAKE 1 CAPSULE BY MOUTH EVERY 8 HOURS NEEDED IF NEEDED FOR ABDOMINAL CRAMPING OR DIARRHEA meclizine 25 mg tablet See Rx Instructions .ROUTE .COMPLEX Qty: 30 0RF Dose Instruction: TAKE 1 TABLET BY MOUTH THREE TIMES DAILY NEEDED FOR DIZZINESS Rx Instructions: TAKE 1 TABLET BY MOUTH THREE TIMES DAILY NEEDED FOR DIZZINESS venlafaxine 75 mg capsule,extended release 24hr 75 mg PO DAILY Qty: 30 2RF Referrals Follow up/Referrals: Lily Arias APRN [Primary Care Provider, Medical] - See instructions Instructions Patient Instructions: DI for Acute Abdominal Pain Print Language Print Language: Greek Discharge ED Provider: Janette Sheriff Adult HPI General Chief complaint: Abdominal Pain Stated complaint: abd pain, diarrhea, nausea Time Seen by Provider: 04/20/25 05:10 Mode of Arrival: Family Vehicle Source of Information: Patient Description of Symptoms (Recalled from ER Triage Doc. by RN): Abd pain Pt presents to the ED with c/o abd pain accompanied by diarrhea X 3 days. Pt rpeorts that he has a Hx of IBS and states if I even get a stomach bug it takes me longer to get over it . History of Present Illness HPI narrative: 39-year-old male presents to the ER complaining of abdominal cramping and diarrhea for 3 days. Patient reports he has a history of IBS and he and his at bedside reports that if he gets sick with anything it seems to take him longer to recover than the rest of his family. His daughter did have abdominal cramping and mild symptoms like his for a day, but she is already over it. Patient reports he started with cramping and multiple episodes of diarrhea 3 days ago. He had diffuse significant cramping for 2 days. He took Imodium 24 hours ago and states he has not had a bowel movement since that time but is still having significant cramping. He states associated with his cramping and diarrhea he has also had belching and nausea but no vomiting. He states this has been consistent for the last 3 days as well. He has taken Zofran at home. He has not taken Bentyl although he had a previous prescription for it. He states he took Tylenol prior to arrival and the cramping pain in his abdomen is improved but he continues having belching. He denies chest pain or difficulty breathing. No fevers though he states he has had chills with his episodes of severe pain. He denies bloody or melanotic stool. No other associated symptoms. Related Data Home Medications ?Medication ?Instructions ?Recorded ?Confirmed multivitamin 1 tab PO DAILY 02/17/23 09/24/24 B.coagulans 2 billion 1 cap PO DAILY 07/28/23 09/24/24 cell-digestive enzymes combo no.10 capsule (Digestive Advantage Probiotics Plus Gas) magnesium gluconate 27 mg 27 mg PO BID 07/28/23 09/24/24 magnesium (500 mg) tablet (Mag-G) dicyclomine 10 mg capsule 10 mg PO Q8HP PRN 09/24/24 09/24/24 Previous Rx's ?Medication ?Instructions ?Recorded ondansetron 4 mg disintegrating 4 mg PO Q8H PRN Nausea #30 tabs 02/17/23 tablet meclizine 25 mg tablet See Rx Instructions .Route 09/13/24 .COMPLEX #30 tabs venlafaxine 75 mg capsule,extended 75 mg PO DAILY #30 caps 04/04/25 release 24 hr ondansetron 4 mg disintegrating 4 mg PO Q6H PRN nausea and 04/20/25 tablet vomiting #10 tabs sucralfate 1 gram tablet 1 g PO TID #30 tabs 04/20/25 Allergies Allergy/AdvReac Type Severity Reaction Status Date / Time No Known Allergies Allergy Verified 09/24/24 08:45 [facility] Disclaimer: The information contained in this section may have been updated after the patient was seen, as this information can be updated by other users. Medical History Acute sinus infection Surgical History Hx of cholecystectomy Family History Family/Other Hypertension Cancer Social History Smoking Status: Never smoker alcohol intake: current alcohol intake frequency: holidays/special occasions only substance use type: denies use current occupational status: employed Travel in the last 8 weeks?: None Have you lived/traveled outside [place] in past 30 days?: No Contact w/someone who lives/traveled outside [place] past 30 days?: No Exposure to someone with infectious disease in past 14 days?: No Do you have a fever (greater than 100.4 F or 38 C)?: No Have you tested positive for COVID-19?: No Exposed to someone with COVID-19 in past 14 days?: No Do you have a sore throat?: No Do you have a cough?: No Do you have any weakness?: No Do you have any diarrhea?: Yes Are you experiencing any unusual bleeding?: No Do you have any muscle aches/pain?: No Do you have any abdominal pain?: Yes Are you experiencing loss of taste or smell?: No Other Medical History Have you received the Flu Vaccine for this season: No Have you received the Pneumonia Vaccine: No ROS Obtained: Yes Systems reviewed as appropriate & no additional complaints except as documented Per HPI Physical Exam General General appearance: alert and in no apparent distress Head Head exam: atraumatic and normocephalic Eye Eye exam: Present PERRL and EOMI ENT ENT exam: Present mucous membranes moist Neck Neck exam: Present normal inspection and full ROM Chest Chest inspection: Present symmetric chest wall rise Respiratory Respiratory exam: Present normal lung sounds bilaterally; Absent respiratory distress, wheezes or stridor Cardiovascular Cardiovascular exam: Present regular rate and normal rhythm Abdominal Exam Abdominal exam: Present soft, distention (Mild, tympanitic) and tenderness (Diffuse mild); Absent guarding, rebound or rigidity Extremities Exam Extremities exam: Present full ROM Neurological Exam Neurological exam: Present alert and oriented X3; Absent motor sensory deficit Psychiatric Psychiatric exam: Present normal affect and normal mood Skin Skin exam: Present warm and dry Medical Decision Making Medical Records Medical records reviewed: Yes I reviewed the patient's medical records. Screening: Per USPSTF and CDC recommendations, given the prevalence of disease in our region, it is our hospital?s policy to screen for HIV and viral Hepatitis for all patients aged 18 and over and those with ongoing risk factors. Richard Inquiry Pt receiving controlled substance: No Vital Signs: 04/20/25 04:54 Temperature 98.0 F Temperature Source Oral Pulse Rate [Left] 96 H Respiratory Rate 16 Blood Pressure [Right Arm] 140/103 H Blood Pressure Mean [Right Arm] 115 Blood Pressure Source [Right Arm] Automatic Cuff Blood Pressure Position [Right Arm] Sitting 02 Sat by Pulse Oximetry 98 Oxygen Delivery Method Room Air Lab Data Lab Results 04/20/25 05:03: WBC 7.6, RBC 5.87, Hgb 17.9, Hct 50.9, MCV 86.7, MCH 30.5, MCHC 35.2, RDW 12.4, Plt Count 301, MPV 10.1, Neut % (Auto) 51.4, Lymph % (Auto) 37.3, [place] % (Auto) 8.6, Eos % (Auto) 2.0, Baso % (Auto) 0.3, Neut # (Auto) 3.9, Lymph # (Auto) 2.8, [place] # (Auto) 0.7, Eos # (Auto) 0.2, Baso # (Auto) 0.0, PT 10.9, INR 0.98, Sodium 142, Potassium 3.7, Chloride 103, Carbon Dioxide 25, Anion Gap 17.7 H, BUN 15, Creatinine 1.20, Estimated Creat Clear 103, Estimated GFR 67, Est GFR ( Amer) 82, Glucose 112 H, Calcium 10.1, Total Bilirubin 0.8, AST 39, ALT 50, Alkaline Phosphatase 98, Troponin I < 0.01, Total Protein 9.7 H, Albumin 5.8 H, Globulin 3.9 H, Albumin/Globulin Ratio 1.5, Lipase 132, HIV Ag/Ab Combo Qual Negative 04/20/25 05:48: Lactate 1.8 04/20/25 05:03 04/20/25 05:03 Orders (Tests/Meds): ED MEDICATIONS Discontinued Medications Generic Name Dose Route Start Last Admin Trade Name Freq PRN Reason Stop Dose Admin Belladonna Alkaloids 60 ml 04/20/25 05:42 04/20/25 05:52 Belladonna Alkaloids 60 Ml Ml PO 04/20/25 05:43 60 ml ONCE ONE Administration Lactated Ringer's 1,000 mls @ 999 mls/hr 04/20/25 05:27 04/20/25 05:52 Lactated Ringer's 1000 Ml Bag IV 04/20/25 06:27 999 mls/hr .Q1H1M ONE Administration Iopamidol 75 ml 04/20/25 06:05 04/20/25 06:06 Iopamidol-370 (76%);100ml Bottle IV 04/20/25 06:06 75 ml ONCE ONE Administration Sodium Chloride 10 ml 04/20/25 06:05 04/20/25 06:06 Sodium Chloride 0.9% 10ml Syr (Rad Only) IV 04/20/25 06:06 10 ml ONCE ONE Administration ORDERS Category Date Time Status CT abdomen pelvis w con Stat Cat Scan 04/20/25 05:27 Taken Complete Blood Count Auto Diff Stat Lab 04/20/25 05:03 Completed Comprehensive Metabolic Panel Stat Lab 04/20/25 05:03 Completed HIV Combo Stat Lab 04/20/25 05:03 Completed Hepatitis C Ab Qual. W/ RFX Stat Lab 04/20/25 05:03 Received Lactic Acid Stat Lab 04/20/25 05:48 Completed Lipase Stat Lab 04/20/25 05:03 Completed Prothrombin Time INR Stat Lab 04/20/25 05:03 Completed Trop I [Troponin I] Stat Lab 04/20/25 05:03 Completed Troponin I Q3H Lab 04/20/25 08:45 Ordered Troponin I Q3H Lab 04/20/25 11:45 Ordered ECG Request Stat Y 04/20/25 05:42 Ordered Medical Decision Narrative: In summary, this 39-year-old male with comorbidities described in the HPI presents to the emergency department today with abdominal pain, cramping, diarrhea, nausea, belching. On initial evaluation patient is hemodynamically stable, afebrile, mildly distended abdomen that is tympanitic with mild diffuse tenderness but no rebound or guarding, remainder of exam benign. Differential diagnosis includes but is not limited to viral syndrome, IBS, colitis, enteritis, considered infectious diarrhea, electrolyte abnormality, dehydration, among others. Based on these concerns, I ordered hematologic and serum labs, lactic, lipase, CT abdomen pelvis, EKG and troponin to rule out atypical presentation of ACS though I have low suspicion for this. If patient produces a bowel movement I will order a diarrhea panel. ECG personally interpreted demonstrates sinus rhythm, rate 68, normal axis, normal [place] and QTc, no STEMI, normal ECG. Patient received GI cocktail, IV fluids initially for treatment. Labs personally reviewed demonstrate normal CBC, normal PT/INR, CMP with slightly elevated anion gap likely related to patient's report of poor oral intake secondary to symptoms. Troponin undetectably low less than 0.01, lactate normal at 1.8, lipase normal at [address] abdomen pelvis personally interpreted does not demonstrate evidence of bowel obstruction or obvious acute surgical pathology, there does appear to be liquid stool throughout many areas of the intestines. Radiology read pending. On reassessment patient is resting more comfortably, decreased belching. Awaiting results of radiologic imaging. Patient handed off to Dr. Rosario in stable condition. Critical Care Critical Care Time Critical Care Time: No
[2025-04-20] MEDS: BELLADONNA ALKALOIDS 60 ML ML PO (05:52)
[2025-04-20] MEDS: LACTATED RINGERS 1000ML 1,000 ML 999 ML IV (05:52)
[2025-04-20] MEDS: SODIUM CHLORIDE 0.9% 10ML SYR (RAD ONLY) 10 ML IV (06:06)
[2025-04-20] MEDS: IOPAMIDOL-370 (76%);100ML BOTTLE 75 ML IV (06:06)
[2025-04-20 06:10] LABS: Troponin I < 0.01 ng/ml (0.00-0.034)
[2025-04-20 06:23] LABS: Hepatitis C Ab Qual. W/ RFX NEGATIVE (Negative)
--- NOTE | 2025-04-20 06:48 | ECG_ITS ---
APPROVED REPORT Exam: Resting ECG HR:68 bpm ECG Measurements Heart Rate 68 AXES WA 161 P 77 QRSd 100 QRS 71 QT 381 T 69 QTc 398 Conclusion SINUS RHYTHM NORMAL ECG Electronically signed by : SONIA LORD, 04/21/2025 04:48:58
[2025-04-20] MEDS: ONDANSETRON 4MG/2ML VIAL 4 MG IV (07:26)
[2025-04-20] MEDS: MORPHINE 4MG/ML SYRINGE 4 MG IV (07:31)
[2025-04-20 07:38] VITALS: BP 122/85; PULSE 77; O2SAT 98
--- NOTE | 2025-04-20 08:26 | PC.NURSE ---
rad called back long read times with radiology pts scan has not been assigned to be read yet
[2025-04-20] MEDS: ACETAMINOPHEN 500MG TAB 1000 MG PO (08:28)
[2025-04-20] MEDS: IBUPROFEN 600 MG TABLET PO (08:28)
[2025-04-20 09:05] VITALS: BP 135/70; PULSE 80; RESP 20; TEMP 36.7; O2SAT 98
== END 2025-04-20 09:06 | disposition home or self-care (01) ==
PROVIDERS: Emergency Provider Emergency Medicine; PCP Nurse Practitioner Family
DX: R10.9 Unspecified abdominal pain (principal); R11.0 Nausea; R14.2 Eructation; K58.0 Irritable bowel syndrome with diarrhea; Z90.49 Acquired absence of other specified parts of digestive tract
CPT/HCPCS: 74177; 80053; 83605; 83690; 84484; 85025; 85610; 86803; 87389; 93005; 96361; 96374; 96375; 99285; J2270; J2405; J7120; Q9967